=== PATIENT | female | born 1950 | race Caucasian/White ===

== ENCOUNTER 2024-07-22 16:56 | Emergency (ER) | payer OTHER, MEDICARE ==
[~2024-07-22] VITALS: Ht 157.5 cm; Wt 59.0 kg
[2024-07-22 16:56] VITALS: BP_SYST 112; PULSE 62; RESP 19; TEMP 97.9; O2SAT 99
[2024-07-22 17:59] LABS: BASOPHILS # (AUTO) 0.1 K/uL (0.0-0.2); EOSINOPHILS % (AUTO) 0.8 % (0.0-4.0); HEMATOCRIT 37.6 % (36-48); HEMOGLOBIN 12.7 g/dL (12.0-16.0); LYMPHOCYTES # (AUTO) 2.1 K/uL (1.0-5.5); LYMPHOCYTES % (AUTO) 36.2 % (20.5-51.5); MEAN CORPUSCULAR HEMOGLOBIN 34 pg (27-31); MEAN CORPUSCULAR HGB CONC 34 % (32-36); MEAN CORPUSCULAR VOLUME 99 fL (79.0-98.0); MONOCYTES # (AUTO) 0.5 K/uL (0.0-1.0); MONOCYTES % (AUTO) 8.8 % (1.7-9.3); NEUTROPHILS % (AUTO) 53.2 % (40.0-70.0); PLATELET COUNT (AUTO) 264 K/uL (130-430); RED BLOOD CELL COUNT(AUTO) 3.79 MIL/uL (4.2-6.2); RED CELL DISTRIBUTION WIDTH 13.3 % (9.0-15.0); WHITE BLOOD COUNT (AUTO) 5.7 K/uL (4.8-10.8)
[2024-07-22] MEDS: NACL 0.9% 1,000 ML IV ONE (18:22)
[2024-07-22] MEDS: ONDANSETRON HCL 4 MG/2 ML VIAL IVP ONE (18:22)
[2024-07-22 18:23] LABS: PROTHROMBIN TIME 10.7 SECS (9.5-12.5)
[2024-07-22] MEDS: METOCLOPRAMIDE HCL 10 MG/2 ML VIAL IVP ONE (18:23)
[2024-07-22 18:24] LABS: ALANINE AMINOTRANSFERASE 13 U/L (12-78); ALBUMIN 3.6 g/dL (3.4-4.8); ANION GAP 7 (5-15); ASPARTATE AMINOTRANSFERASE 18 U/L (10-37); CALCIUM 9.4 mg/dL (8.4-11.0); CARBON DIOXIDE 30 mmol/L (23-29); CHLORIDE 104 mmol/L (98-107); CREATININE 1.12 mg/dL (0.55-1.30); GLUCOSE 98 mg/dL (74-106); POTASSIUM 3.4 mmol/L (3.5-5.1); SODIUM SERUM 141 mmol/L (136-145); TOTAL BILIRUBIN 0.5 mg/dL (0.0-1.0); TOTAL PROTEIN, SERUM 7.2 g/dL (6.4-8.3); UREA NITROGEN, BLOOD 14 mg/dL (8-21)
[2024-07-22 18:26] LABS: BILIRUBIN,DIRECT 0.1 mg/dL (0.0-0.3)
[2024-07-22] MEDS: DIPHENHYDRAMINE INJ 50 MG/ML VIAL IVP ONE (18:27)
[2024-07-22 19:26] LABS: INFLUENZA TYPE A Negative (NEGATIVE); INFLUENZA TYPE B NEGATIVE (NEGATIVE)
[2024-07-22 19:34] VITALS: BP_SYST 112; PULSE 62; RESP 19; TEMP 97.9; O2SAT 99
== END 2024-07-22 19:34 | disposition left against medical advice (07) ==
LOC: SED 16:56
DX: R55 Syncope and collapse (principal); R11.10 Vomiting, unspecified; R06.02 Shortness of breath; Z20.822 Contact with and (suspected) exposure to COVID-19; Z88.5 Allergy status to narcotic agent
CPT/HCPCS: 99285; 96374; 96375; 71045; 96361; 87426; 80076; 80048; 85025; 85610; 85730; 87040; 84484; 36415; 93005; 83605; 87804 ×2; J1200; J2765; J2405; J7030